=== PATIENT | female | born 1960 | race Caucasian/White ===

== ENCOUNTER 2016-09-01 21:16 | Emergency (ER) | payer OTHER ==
--- NOTE | 2016-09-01 21:36 | PDOC ---
History of Present Illness - General History Source: Patient Exam Limitations: No Limitations - History of Present Illness Initial Comments: 09/01/16 21:51 The patient is a 55 year old female with past medical history of fibrocystic breasts and left breast cyst removal who presents to the ED with complaints of bilateral breast pain and tenderness, left greater than right. She reports the pain is worse to touch and wraps all around her breast. Her last mammogram was 9 months ago and was normal. She reports already experiencing menopause. The patient reports having an appointment with her breast doctor on Saturday. The patient denies any fever, chills, nausea, vomiting, diarrhea, cough, shortness of breath, chest pain. PAST MEDICAL HISTORY: no significant history PAST SURGICAL HISTORY: no significant history FAMILY HISTORY: no pertinent history SOCIAL HISTORY: Pt lives with family and is employed. MEDICATIONS: reviewed ALLERGIES: As per nursing notes General: No fevers or chills, no weakness, no weight loss HEENT: No change in vision. No sore throat,. No ear pain CardioVascular: No chest pain or shortness of breath Respiratory:No cough, or wheezing. Gastrointestinal: no nausea, vomiting, diarrhea or constipation, No rectal bleeding Genitourinary: No dysuria, hematuria, or frequency Musculoskeletal: No joint or muscle pain or swellin Chest: Bilateral breast pain Neurologic: No headache, vertigo, dizziness or loss of consciousness Psychiatric: nor depression Skin: No rashes or easy bruising Endocrine: no increased thirst or abnormal weight change Allergic: no skin or latex allergy All other systems reviewed and normal GENERAL: The patient is awake, alert, and fully oriented, in no acute distress. HEAD: Normal with no signs of trauma. EYES: Pupils equal, round and reactive to light, extraocular movements intact, sclera anicteric, conjunctiva clear. EXTREMITIES: Normal range of motion, no edema. CHEST: Left breast has multiple palpable, irregular feeling nodules, most consistent with cysts. One palp nodule noted on right breast. All nodule are mobile and well defined NEUROLOGICAL: Normal speech, normal gait. PSYCH: Normal mood, normal affect. SKIN: Warm, Dry, normal turgor, no rashes or lesions noted. <Marissa Gomez - Last Filed: 09/01/16 21:51> - General History Source: Patient Exam Limitations: No Limitations - History of Present Illness Initial Comments: 09/01/16 21:55 A portion of this note was documented by scribe services under my direction. I have reviewed the details of the note, within reason, and agree with the documentation. The case summary and management plan written by me. Assessment and plan: This is a 55-year-old female comes in complaining of bilateral breast pain left greater than right. On exam patient does have some nodularity of her breast tissue however the nodules are freely mobile and somewhat tender. Talked with patient the importance of getting the nodules followed up as they most likely are secondary to cysts as she does have a history of fibrocystic breasts but they could also be secondary to something more concerning such as a malignancy. Impressed upon patient the importance of seeing her physician patient said that she does have an appointment for 3 days from now with a breast specialist which she said she will keep. Patient discharged home with some anti-inflammatories. <Ksenia Schulz I - Last Filed: 09/01/16 21:57> - General Chief Complaint: Pain, Acute Stated Complaint: BREAST PAIN L>R Time Seen by Provider: 09/01/16 21:23 Past History <Marissa Gomez - Last Filed: 09/01/16 21:51> - Past Medical History Anemia: No Asthma: No Cancer: No Diabetes: No Disorders: Yes (hematuria x years, followed by urologist Dr. Davis) HTN: Yes Hypercholesterolemia: No Suicide Attempt (Hx): No - Immunization History Immunization Up to Date: Yes - Psycho/Social/Smoking Cessation Hx Anxiety: No Suicidal Ideation: No Smoking Status: No Smoking History: Never smoked Have you smoked in the past 12 months: No Number of Cigarettes Smoked Daily: 0 Cigars Per Day: 0 Hx Alcohol Use: No Drug/Substance Use Hx: No Substance Use Type: None Hx Substance Use Treatment: No <Ksenia Schulz I - Last Filed: 09/01/16 21:57> - Past Medical History Allergies/Adverse Reactions: Allergies Allergy/AdvReac Type Severity Reaction Status Date / Time No Known Allergies Allergy Verified 09/01/16 21:20 Home Medications: Ambulatory Orders Ramipril 5 mg PO BID 02/18/12 Alendronate Sodium [Fosamax] 70 mg PO WEEKLY 04/10/16 Cholecalciferol (Vitamin D3) [Vitamin D3 -] 1,000 mg PO DAILY 04/10/16 Ciprofloxacin HCl [Cipro] 500 mg PO BID 09/01/16 Omeprazole 40 mg PO DAILY 09/01/16 Review of Systems - Review of Systems Able to Perform ROS?: Yes All Other Systems: Reviewed and Negative <Marissa Gomez - Last Filed: 09/01/16 21:51> *Physical Exam - Vital Signs Last Vital Signs Temp Pulse Resp BP Pulse Ox 98.4 F 55 L 15 153/97 99 09/01/16 21:18 09/01/16 21:18 09/01/16 21:18 09/01/16 21:18 09/01/16 21:18 <kevinMarissa gar - Last Filed: 09/01/16 21:51> *DC/Admit/Observation/Transfer - Attestations Scribe Attestion: 09/01/16 21:54 Documentation prepared by Marissa Gomez, acting as medical csr for Ksenia Schulz MD. <kevinrinMarissa - Last Filed: 09/01/16 21:51> - Discharge Dispostion Admit: No <Ksenia Schulz I - Last Filed: 09/01/16 21:57> Diagnosis at time of Disposition: Painful breasts - Discharge Dispostion Disposition: HOME Condition at time of disposition: Good - Referrals Referrals: Pepe Sargent MD [Primary Care Provider] - - Patient Instructions Additional Instructions: U can take Tylenol 2 extra strength tablets every 4 hours or ibuprofen 3 tablets every 6-8 hours as needed for pain take the ibuprofen with food don't take it on an empty stomach. Keep your appointment for Saturday with your breast Dr. Return to the emergency department immediately with ANY new, persistent or worsening symptoms. Continue any medications as previously prescribed by your physician. You should follow up with your primary doctor as soon as possible regarding today's emergency department visit. . Please make sure your doctor reviews the results of your emergency evaluation. Thank you for coming to the Emergency Department today for your care. It was a pleasure to see you today. Please note that your evaluation is INCOMPLETE until you follow-up with your doctor.
[2016-09-01] MEDS ORDERED: KETOROLAC TROMETHAMINE 60 MG/2 ML VIAL IM ONE (21:48)
[2016-09-01] MEDS ORDERED: KETOROLAC TROMETHAMINE 60 MG/2 ML VIAL ONE (21:48)
[2016-09-01 22:04] VITALS: BP 153/97; PULSE 55; TEMP 98.4; BMI 26.7
== END 2016-09-01 22:00 | disposition home or self-care (01) ==
LOC: FER 21:16
PROC: 3E0233Z Introduction of Anti-inflammatory into Muscle, Percutaneous Approach (ICD-10-PCS; principal; 2016-09-01)
DX: N64.4 Mastodynia (principal); N60.12 Diffuse cystic mastopathy of left breast; N60.11 Diffuse cystic mastopathy of right breast
CPT/HCPCS: 96372; 99281-25

== ENCOUNTER 2018-05-31 16:04 | Emergency (ER) | payer OTHER ==
[2018-05-31 16:24] VITALS: BP 145/78; PULSE 68; TEMP 98; BMI 29.2
--- NOTE | 2018-05-31 16:50 | PDOC ---
History of Present Illness - General Chief Complaint: Injury Stated Complaint: INJURY TO RIGHT FOOT Time Seen by Provider: 05/31/18 16:28 History Source: Patient Exam Limitations: No Limitations - History of Present Illness Initial Comments: 05/31/18 17:02 was vacumming yesterday and tripped causing her to collide with furniture edge/ incident occured last night Occurred: reports: yesterday Severity: reports: mild, moderate Pain Location: reports: lower extremity (right foot ) Modifying Factors: improves with: cold therapy Associated Symptoms (Fall): denies symptoms Past History - Travel Traveled outside of the country in the last 30 days: No Close contact w/someone who was outside of country & ill: No - Past Medical History Allergies/Adverse Reactions: Allergies Allergy/AdvReac Type Severity Reaction Status Date / Time No Known Allergies Allergy Verified 09/01/16 21:20 Home Medications: Ambulatory Orders Losartan Potassium 100 mg PO DAILY 01/08/18 Anemia: No Asthma: No Cancer: No COPD: No Diabetes: No Disorders: Yes (hematuria x years, followed by urologist Dr. Davis) HTN: Yes Hypercholesterolemia: No Liver Disease: Yes (CYST) - Immunization History Immunization Up to Date: Yes - Suicide/Smoking/Psychosocial Hx Smoking Status: No Smoking History: Never smoked Have you smoked in the past 12 months: No Number of Cigarettes Smoked Daily: 0 Cigars Per Day: 0 Information on smoking cessation initiated: No Hx Alcohol Use: No Drug/Substance Use Hx: No Substance Use Type: None Hx Substance Use Treatment: No Review of Systems - Review of Systems Able to Perform ROS?: Yes Is the patient limited Yakut proficient: Yes Constitutional: Yes: Symptoms Reported, See HPI HEENTM: No: Symptoms Reported Musculoskeletal: Yes: Symptoms Reported Integumentary: Yes: Symptoms Reported, See HPI, Bruising Neurological: Yes: See HPI. No: Symptoms reported All Other Systems: Reviewed and Negative *Physical Exam - Vital Signs Last Vital Signs Temp Pulse Resp BP Pulse Ox 98.0 F 68 16 145/78 99 05/31/18 16:05 05/31/18 16:05 05/31/18 16:05 05/31/18 16:05 05/31/18 16:05 - Physical Exam General Appearance: Yes: Nourished, Appropriately Dressed, Apparent Distress, Mild Distress HEENT: positive: MARK, Normal ENT Inspection, TMs Normal, Pharynx Normal Neck: positive: Supple Extremity: positive: Normal Capillary Refill, Normal Range of Motion (tender with ecchymosis to MTP/ prox phalynx of right 5th toe ), Swelling Integumentary: positive: Normal Color, Swelling, Bruising Neurologic: positive: set rider II-XII NML intact, Fully Oriented, Alert, Normal Mood/ Affect, Normal Response, Motor Strength 5/5 Progress Note - Progress Note Progress Note: Right fifth toe fracture, patient refuses x-ray as understands treatment will be unchanged. Facundo tape applied, cast shoe was placed, and will follow up as needed *DC/Admit/Observation/Transfer Diagnosis at time of Disposition: Toe fracture, right Qualifiers: Encounter type: initial encounter Toe: lesser toe Fracture type: closed Phalanx : distal Fracture alignment: nondisplaced Qualified Code(s): S92.534A - Nondisplaced fracture of distal phalanx of right lesser toe(s), initial encounter for closed fracture - Discharge Dispostion Disposition: HOME Condition at time of disposition: Stable Decision to Admit order: No - Referrals Referrals: Edmundo Fragoso MD [Staff Physician] - - Patient Instructions Printed Discharge Instructions: DI for Toe Fracture Additional Instructions: Rest, ice to area on and off for 15 minutes 4-6 times a day Avoid heavy lifting or exercise until pain and swelling is resolved or until further directed Keep area highly elevated to reduce swelling Use splints/Jonathan wrap as directed Followup with orthopedist in one to 2 days if not improving, if significantly improved may wait one week for followup with orthopedist May use Tylenol 23 25 no gram tablets every 4-6 hours as needed for pain - Post Discharge Activity Forms/Work/School Notes: Back to Work
== END 2018-05-31 17:53 | disposition home or self-care (01) ==
LOC: JERFT 16:04
DX: S92.534A Nondisplaced fracture of distal phalanx of right lesser toe(s), initial encounter for closed fracture (principal); W22.03XA Walked into furniture, initial encounter; Y93.E3 Activity, vacuuming; Y92.038 Other place in apartment as the place of occurrence of the external cause; Y99.8 Other external cause status
CPT/HCPCS: 99281-25

== ENCOUNTER 2018-11-23 09:36 | Emergency (ER) | payer OTHER ==
[2018-11-23 09:41] VITALS: BP 139/87; PULSE 80; TEMP 98.2; BMI 29.9
[2018-11-23] MEDS ORDERED: LIDOCAINE 5% TOPICAL PATCH TP ONE (10:10)
[2018-11-23] MEDS ORDERED: KETOROLAC TROMETHAMINE 15 MG/ML VIAL IM ONE (10:10)
[2018-11-23] MEDS ORDERED: LIDOCAINE 5% TOPICAL PATCH ONE (10:12)
[2018-11-23] MEDS ORDERED: KETOROLAC TROMETHAMINE 15 MG/ML VIAL ONE (10:12)
--- NOTE | 2018-11-23 10:13 | PDOC ---
History of Present Illness - General Chief Complaint: Pain Stated Complaint: CHEST PAIN Time Seen by Provider: 11/23/18 09:47 History Source: Patient Exam Limitations: No Limitations Past History - Travel Traveled outside of the country in the last 30 days: No Close contact w/someone who was outside of country & ill: No - Past Medical History Allergies/Adverse Reactions: Allergies Allergy/AdvReac Type Severity Reaction Status Date / Time No Known Allergies Allergy Verified 11/23/18 09:41 Home Medications: Ambulatory Orders Losartan Potassium 100 mg PO DAILY 01/08/18 Anemia: No Asthma: No Cancer: No COPD: No Diabetes: No Disorders: Yes (hematuria x years, followed by urologist Dr. Davis) HTN: Yes Hypercholesterolemia: No Liver Disease: Yes (CYST) - Immunization History Immunization Up to Date: Yes - Suicide/Smoking/Psychosocial Hx Smoking Status: No Smoking History: Never smoked Have you smoked in the past 12 months: No Number of Cigarettes Smoked Daily: 0 Cigars Per Day: 0 Hx Alcohol Use: No Drug/Substance Use Hx: No Substance Use Type: None Hx Substance Use Treatment: No Review of Systems - Review of Systems Able to Perform ROS?: Yes Comments:: 11/23/18 10:06 CONSTITUTIONAL: Absent: fever, chills, diaphoresis, generalized weakness, malaise, loss of appetite CARDIOVASCULAR: Absent: chest pain, loss of consciousness, palpitations, irregular heart rate, peripheral edema RESPIRATORY: Absent: cough, shortness of breath, dyspnea with exertion, orthopnea, wheezing, stridor, hemoptysis MUSCULOSKELETAL: Present: chest wall pain Absent: myalgia, arthralgia, joint swelling SKIN: Absent: rash, itching, pallor HEMATOLOGIC/IMMUNOLOGIC: Absent: easy bleeding, easy bruising, lymphadenopathy, frequent infections ENDOCRINE: Absent: unexplained weight gain, unexplained weight loss, heat intolerance, cold intolerance NEUROLOGIC: Absent: headache, focal weakness or paresthesias, dizziness, unsteady gait, seizure, mental status changes, bladder or bowel incontinence PSYCHIATRIC: Absent: anxiety, depression, suicidal or homicidal ideation, hallucinations. Is the patient limited Nepali proficient: No *Physical Exam - Vital Signs Last Vital Signs Temp Pulse Resp BP Pulse Ox 98.2 F 80 18 139/87 99 11/23/18 09:38 11/23/18 09:38 11/23/18 09:38 11/23/18 09:38 11/23/18 09:38 - Physical Exam Comments: 11/23/18 10:06 GENERAL: Well developed, well nourished. Awake and alert. No acute distress. HEENT: Normocephalic, atraumatic. PERRLA, EOMI. No conjunctival pallor. Sclera are non- icteric. Moist mucous membranes. Oropharynx is clear. NECK: Supple. Full ROM. No JVD. Carotid pulses 2+ and symmetric, without bruits. No thyromegaly. No lymphadenopathy. CARDIOVASCULAR: Regular rate and rhythm. No murmurs, rubs, or gallops. Distal pulses are 2+ and symmetric. PULMONARY: No evidence of respiratory distress. Lungs clear to auscultation bilaterally. No wheezing, rales or rhonchi. ABDOMINAL: Soft. Non-tender. Non-distended. No rebound or guarding. No organomegaly. Normoactive bowel sounds. MUSCULOSKELETAL TTP of the L chest wall along ribs 5-6 in the intercostal space. Normal range of motion at all joints. No bony deformities or tenderness. No CVA tenderness. EXTREMITIES: No cyanosis. No clubbing. No edema. No calf tenderness. SKIN: Warm and dry. Normal capillary refill. No rashes. No jaundice. NEUROLOGICAL: Alert, awake, appropriate. Cranial nerves 2-12 intact. No deficits to light touch and temperature in face, upper extremities and lower extremities. No motor deficits in the in face, upper extremities and lower extremities. Normoreflexic in the upper and lower extremities. Normal speech. Toes are down- going bilaterally. Gait is normal without ataxia. PSYCHIATRIC: Cooperative. Good eye contact. Appropriate mood and affect. Medical Decision Making - Medical Decision Making 11/23/18 09:04 *DC/Admit/Observation/Transfer Diagnosis at time of Disposition: Left-sided chest wall pain - Discharge Dispostion Disposition: HOME Condition at time of disposition: Stable Decision to Admit order: No - Referrals - Patient Instructions Printed Discharge Instructions: DI for Atypical Chest Pain Additional Instructions: You most likely have chest wall pain from pulling a patient Take Tylenol 1000mg every 6 hours for pain Use the incentive spirometer once an hour until your pain is relieved. Please follow-up with her primary care doctor this week. Return to the ER for worsening pain, lightheadedness, dizziness, or if you have any changes in your symptoms. - Post Discharge Activity Forms/Work/School Notes: Back to Work
[2018-11-23] MEDS ORDERED: LIDOCAINE PATCH REMOVAL MC SCH (22:00)
== END 2018-11-23 10:24 | disposition home or self-care (01) ==
LOC: JERFT 09:36
DX: R07.89 Other chest pain (principal)
CPT/HCPCS: 99281-25

== ENCOUNTER 2019-08-15 12:52 | Emergency (ER) | payer OTHER ==
[2019-08-15 13:08] VITALS: BP 120/88; PULSE 96; TEMP 99.7; BMI 30.1
[2019-08-15] MEDS ORDERED: ACETAMINOPHEN 500 MG TABLET (FP) PO ONE (13:21)
[2019-08-15] MEDS ORDERED: ACETAMINOPHEN 500 MG TABLET (FP) ONE (13:22)
--- NOTE | 2019-08-15 13:27 | PDOC ---
History of Present Illness - General Chief Complaint: Cold Symptoms Stated Complaint: COLD SYMPTOMS Time Seen by Provider: 08/15/19 13:09 History Source: Patient Exam Limitations: No Limitations - History of Present Illness Initial Comments: 08/15/19 13:21 Patient is a 58-year-old female who presents to the ED with complaint of body aches, dry cough and general unwell feeling since last night. She states she worked 12 hours yesterday and 1 of her colleagues had the flu. The patient does admit to getting a flu shot this year. She has a history of hypertension and multiple renal cysts. She has no allergies to medications. The patient took NyQuil last night which did help her. Past History - Past Medical History Allergies/Adverse Reactions: Allergies Allergy/AdvReac Type Severity Reaction Status Date / Time No Known Allergies Allergy Verified 08/15/19 13:03 Home Medications: Ambulatory Orders Lisinopril 5 mg PO BID 08/15/19 Oseltamivir Phosphate [Tamiflu] 75 mg PO BID #10 capsule 08/15/19 Anemia: No Asthma: No Cancer: No COPD: No Diabetes: No Disorders: Yes (hematuria x years, followed by urologist Dr. Davis) HTN: Yes Hypercholesterolemia: No Liver Disease: Yes (CYST) Other medical history: multiple renal cysts - Immunization History Immunization Up to Date: Yes - Psycho Social/Smoking Cessation Hx Smoking Status: No Smoking History: Never smoked Have you smoked in the past 12 months: No Number of Cigarettes Smoked Daily: 0 Cigars Per Day: 0 Hx Alcohol Use: No Drug/Substance Use Hx: No Substance Use Type: None Hx Substance Use Treatment: No Review of Systems - Review of Systems Comments:: 08/15/19 13:22 - Review of Systems Able to Perform ROS?: Yes Constitutional: No: Loss of Appetite, Night Sweats, Weakness, positive subjective Fever, Chills HEENTM: No: Eye Pain, Vision changes, Ear Pain, Throat Pain, Throat Swelling, Mouth Pain, Difficulty Swallowing Respiratory: No: Shortness of Breath, Wheezing, Sputum Production, Positive dry Cough Cardiac (ROS): No: Chest Pain, Chest Tightness, Palpitations, Irregular Heart Beat, Edema ABD/GI: No: Nausea, Vomiting, Abdominal Pain, Diarrhea : No Dysuria, No Hematuria, No Frequency, No Urgency Musculoskeletal: No: Muscle Pain, Back Pain, Joint Pain, Muscle Weakness, Neck Pain Integumentary: No: Lesions, Rash Neurological: No: Headache, Numbness, Tingling, Weakness, Speech Difficulties *Physical Exam - Vital Signs Last Vital Signs Temp Pulse Resp BP Pulse Ox 99.7 F H 96 H 18 120/88 99 08/15/19 13:05 08/15/19 13:05 08/15/19 13:05 08/15/19 13:05 08/15/19 13:05 - Physical Exam 08/15/19 13:23 - Physical Exam General Appearance: Nourished, Appropriately Dressed, No Distress HEENT: EOMI, Normal Voice, No Pharyngeal Erythema, No Muffled/Hoarse voice, No Tonsillar Exudate, No Tonsillar Erythema, No Nasal Congestion, No Rhinorrhea, Hearing Grossly Normal, TMs Normal, No TM Bulging, No TM Dullness, No TM Erythema Neck: Supple, No Lymphadenopathy (R), No Lymphadenopathy (L), No Rigidity, No Decreased range of motion Respiratory/Chest: Lungs Clear, Normal Breath Sounds. No Respiratory Distress, No Accessory Muscle Use Cardiovascular: Regular Rhythm, Regular Rate, S1, S2 Gastrointestinal/Abdominal: Normal Bowel Sounds, Soft. Non-tender, No Guarding , No Rebound, No Rigidity Musculoskeletal: Normal Inspection. No Decreased Range of Motion Extremity: Normal Capillary Refill, Normal Inspection Integumentary: Normal Color, Dry. 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 Plan: -Tylenol p.o. given in the ED -We will prescribe Tamiflu secondary to a close contact being diagnosed with influenza and patient now having similar symptoms -She should follow-up with her primary doctor within 1 to 2 days for repeat evaluation. Discharge - Discharge Information Problems reviewed: Yes Clinical Impression/Diagnosis: Flu-like symptoms Condition: Stable Disposition: HOME - Additional Discharge Information Prescriptions: Oseltamivir Phosphate [Tamiflu] 75 mg PO BID #10 capsule - Follow up/Referral Referrals: Pepe Sargent MD [Primary Care Provider] - - Patient Discharge Instructions Patient Printed Discharge Instructions: DI for Viral Syndrome Additional Instructions: Get plenty of rest and drink plenty of fluids. Take the Tamiflu as prescribed and complete the entire course. If the Tamiflu gives you vomiting or diarrhea you can stop taking it. Take Tylenol for fevers and body aches. Follow-up with your primary doctor within 1 to 2 days for repeat evaluation. - Post Discharge Activity Work/Back to School Note: Back to Work
== END 2019-08-15 13:33 | disposition home or self-care (01) ==
LOC: JERFT 12:52
DX: J11.1 Influenza due to unidentified influenza virus with other respiratory manifestations (principal); I10 Essential (primary) hypertension
CPT/HCPCS: 99281-25

== ENCOUNTER 2020-09-29 11:49 | Emergency (ER) | payer OTHER ==
[2020-09-29 13:59] LABS: BASO % 0.4 % (0-2.0); EOS % 0.5 % (0-4.5); HEMATOCRIT 37.4 % (32.4-45.2); HEMOGLOBIN 12.6 GM/dL (10.7-15.3); LYMPH % 8.4 % (8-40); MCH 30.4 pg (25.7-33.7); MCHC 33.8 g/dl (32.0-36.0); MEAN CELL VOLUME 89.8 fl (80-96); MEAN PLT VOLUME 8.7 fl (7.5-11.1); MONO % 7.7 % (3.8-10.2); PLATELET COUNT 331 K/MM3 (134-434); RBC 4.16 M/mm3 (3.60-5.2); RDW 14.2 % (11.6-15.6)
[2020-09-29 14:09] LABS: EPI CELLS 6 /uL (0-25.1); HYALINE CASTS 0 /uL (0-3.1); PH,URINE 5.5 (5.0-8.0); URINE APPEARANCE CLEAR; URINE BACTERIA 387 /uL (0-1359); URINE BILIRUBIN NEGATIVE (NEGATIVE); URINE COLOR YELLOW; URINE GLUCOSE (UA) NEGATIVE (NEGATIVE); URINE KETONE NEGATIVE (NEGATIVE); URINE LEUK ESTERASE NEGATIVE (NEGATIVE); URINE NITRITE NEGATIVE (NEGATIVE); URINE PROTEIN NEGATIVE (NEGATIVE); URINE RBC 69 /uL (0-23.9); URINE UROBILINOGEN 0.2 mg/dL (0.2-1.0); URINE WBC 8 /uL (0-25.8)
[2020-09-29 14:18] LABS: CHLORIDE 107 mmol/L (98-107); POTASSIUM 3.6 mmol/L (3.5-5.1); SODIUM 142 mmol/L (136-145)
[2020-09-29 14:20] LABS: CALCIUM 9.3 mg/dL (8.5-10.1)
[2020-09-29 14:21] LABS: ALBUMIN 3.2 g/dl (3.4-5.0); ANION GAP 7 MMOL/L (8-16); BLOOD UREA NITROGEN 21.4 mg/dL (7-18); CO2 28 mmol/L (21-32); GLUCOSE,RANDOM 98 mg/dL (74-106); LIPASE 141 U/L (73-393)
[2020-09-29 14:23] LABS: SGPT/ALT 23 U/L (13-61)
[2020-09-29 14:24] LABS: CREATININE 0.7 mg/dL (0.55-1.3); SGOT/AST 16 U/L (15-37)
[2020-09-29 14:25] LABS: BILIRUBIN,TOTAL 0.3 mg/dL (0.2-1); TOT PROT 6.9 g/dl (6.4-8.2)
[2020-09-29 14:26] LABS: ALK PHOS 122 U/L (45-117)
[2020-09-29 17:16] VITALS: BP 136/83; PULSE 62; TEMP 98.7
== END 2020-09-29 17:20 | disposition home or self-care (01) ==
LOC: JER 11:49
DX: K80.20 Calculus of gallbladder without cholecystitis without obstruction (principal); K80.50 Calculus of bile duct without cholangitis or cholecystitis without obstruction
CPT/HCPCS: 36415; 71046-TC-FY; 76705-TC; 80053; 81003; 83605; 83690; 84484; 85025; 87086; 93005; 93010; 99285-25

== ENCOUNTER 2020-10-21 04:55 | Day surgery (SDC) | payer OTHER ==
[2020-10-21 07:52] LABS: INR 1.09 (0.83-1.09); PROTHROMBIN TIME (PATIENT) 13.2 SEC (9.7-13.0)
[2020-10-21] MEDS ORDERED: BUPIVACAINE HCL 100 ML ONE (08:22)
[2020-10-21] MEDS ORDERED: LIDOCAINE HCL/PF 2% SDV 5ML VIAL ONE (09:11)
[2020-10-21] MEDS ORDERED: PROPOFOL 20 ML ONE (09:11)
[2020-10-21] MEDS ORDERED: ROCURONIUM BROMIDE 50 MG/5 ML SYRINGE ONE (09:11)
[2020-10-21] MEDS ORDERED: MIDAZOLAM HCL 2 MG/2 ML SINGLE DOSE VIAL ONE (09:11)
[2020-10-21] MEDS ORDERED: fentaNYL CITRATE 250 MCG/5 ML VIAL ONE (09:11)
[2020-10-21] MEDS ORDERED: ceFAZolin 2 GRAM PREMIX BAG IVPB ONE (09:32)
[2020-10-21] MEDS ORDERED: ceFAZolin SODIUM 1 GM VIAL ONE (09:32)
[2020-10-21] MEDS ORDERED: BUPIVACAINE HCL/PF 0.5% (5MG/ML) 10 ML VIAL IJ ONE (10:39)
[2020-10-21] MEDS ORDERED: BENZOIN/ALOE VERA/STORAX/TOLU 58 ML BOTTLE ONE (10:40)
[2020-10-21] MEDS ORDERED: DEXAMETHASONE SOD PHOSPHATE 4 MG/1 ML VIAL ONE (10:41)
[2020-10-21] MEDS ORDERED: KETOROLAC TROMETHAMINE 30 MG/1 ML VIAL ONE (10:41)
[2020-10-21] MEDS ORDERED: GLYCOPYRROLATE 0.2 MG/1 ML VIAL ONE ×2 (10:42)
[2020-10-21] MEDS ORDERED: NEOSTIGMINE METHYLSULFATE 0.5 MG/ML - 10 ML MDV ONE (10:42)
[2020-10-21] MEDS ORDERED: BENZOIN/ALOE VERA/STORAX/TOLU 58 ML BOTTLE TP ONE (10:42)
[2020-10-21] MEDS ORDERED: ONDANSETRON 4 MG/2 ML VIAL IVPUSH PRN (11:04)
[2020-10-21] MEDS ORDERED: PROMETHAZINE HCL 25 MG/1 ML VIAL IVPB PRN (11:04)
[2020-10-21] MEDS ORDERED: oxyCODONE HCL 5 MG TABLET PO PRN ×2 (11:04→11:11)
[2020-10-21] MEDS ORDERED: ACETAMINOPHEN 1000 MG/100 ML VIAL (NON FORMULARY) IVPB PRN (11:12)
[2020-10-21] MEDS ORDERED: ACETAMINOPHEN INJECTION 100 ML IVPB ONE (12:35)
[2020-10-21] MEDS ORDERED: HYDROmorphone HCl 2 MG/ML VIAL ONE (13:22)
[2020-10-21] MEDS ORDERED: ONDANSETRON 4 MG/2 ML VIAL ONE (13:28)
[2020-10-21] MEDS ORDERED: HYDROmorphone HCl 2 MG/ML VIAL IVPUSH ONE (13:44)
[2020-10-21] MEDS ORDERED: ACETAMINOPHEN 500 MG TABLET (FP) PO PRN (14:19)
[2020-10-21] MEDS ORDERED: IBUPROFEN 600 MG TABLET (FP) PO PRN (14:20)
[2020-10-21] MEDS ORDERED: SODIUM CHLORIDE 1,000 ML IV SCH (14:30)
[2020-10-21] MEDS: LISINOPRIL 10 MG TABLET PO SCH (22:33)
[2020-10-22 07:24] VITALS: BP 108/57; PULSE 72; TEMP 97.7
[2020-10-22 07:49] LABS: BASO % 0.2 % (0-2.0); EOS % 0.4 % (0-4.5); HEMATOCRIT 33.4 % (32.4-45.2); HEMOGLOBIN 11.3 GM/dL (10.7-15.3); LYMPH % 16.2 % (8-40); MCH 30.9 pg (25.7-33.7); MEAN CELL VOLUME 91.1 fl (80-96); MEAN PLT VOLUME 9.1 fl (7.5-11.1); MONO % 7.9 % (3.8-10.2); NEUT % 75.3 % (42.8-82.8); PLATELET COUNT 277 K/MM3 (134-434); RBC 3.66 M/mm3 (3.60-5.2); RDW 14.2 % (11.6-15.6); WHITE BLOOD COUNT 10.3 K/mm3 (4.0-10.0)
[2020-10-22 08:08] LABS: CALCIUM 8.2 mg/dL (8.5-10.1)
[2020-10-22 08:09] LABS: ALBUMIN 2.7 g/dl (3.4-5.0); BLOOD UREA NITROGEN 14.7 mg/dL (7-18)
[2020-10-22 08:12] LABS: CREATININE 0.8 mg/dL (0.55-1.3)
[2020-10-22 08:14] LABS: BILIRUBIN,TOTAL 0.6 mg/dL (0.2-1); TOT PROT 5.6 g/dl (6.4-8.2)
[2020-10-22] MEDS: LISINOPRIL 10 MG TABLET PO SCH (09:10)
== END 2020-10-22 11:55 | disposition home or self-care (01) ==
LOC: JASUSAT 04:55 → JASU-SURG 04:55 → J8W 14:58 → JASUSAT 10-22 11:55
PROVIDERS: ATTEND Surgery
PROC: 0FT44ZZ Resection of Gallbladder, Percutaneous Endoscopic Approach (ICD-10-PCS; principal; 2020-10-21 09:00)
DX: K80.10 Calculus of gallbladder with chronic cholecystitis without obstruction (principal)
CPT/HCPCS: 36415; 80053; 85025; 85610; 88304-TC; 94760; J0131

== ENCOUNTER 2021-02-02 17:35 | Emergency (ER) | payer OTHER ==
[2021-02-02 17:43] VITALS: BMI 29.2
[2021-02-02] MEDS ORDERED: KETOROLAC TROMETHAMINE 15 MG/ML VIAL IVPUSH ONE (19:39)
[2021-02-02] MEDS ORDERED: KETOROLAC TROMETHAMINE 15 MG/ML VIAL ONE (19:58)
[2021-02-02 20:33] LABS: BASO % 0.4 % (0-2.0); EOS % 2.2 % (0-4.5); HEMATOCRIT 40.5 % (32.4-45.2); HEMOGLOBIN 13.6 GM/dL (10.7-15.3); MCH 30.5 pg (25.7-33.7); MCHC 33.6 g/dl (32.0-36.0); MEAN CELL VOLUME 90.7 fl (80-96); MEAN PLT VOLUME 8.5 fl (7.5-11.1); MONO % 9.3 % (3.8-10.2); NEUT % 67.1 % (42.8-82.8); PLATELET COUNT 361 10^3/uL (134-434); RBC 4.46 M/mm3 (3.60-5.2); RDW 14.3 % (11.6-15.6); WHITE BLOOD COUNT 9.2 K/mm3 (4.0-10.0)
[2021-02-02 20:47] LABS: ALBUMIN 3.6 g/dl (3.4-5.0); LIPASE 129 U/L (73-393)
[2021-02-02 20:48] LABS: BLOOD UREA NITROGEN 17.1 mg/dL (7-18); MAGNESIUM 2.4 mg/dL (1.8-2.4)
[2021-02-02 20:50] LABS: BILIRUBIN,DIRECT 0.1 mg/dL (0.0-0.2); SGOT/AST 16 U/L (15-37); SGPT/ALT 26 U/L (13-61)
[2021-02-02 20:51] LABS: BILIRUBIN,TOTAL 0.3 mg/dL (0.2-1); CREATININE 0.8 mg/dL (0.55-1.3)
[2021-02-02 20:52] LABS: ALK PHOS 140 U/L (45-117); PHOSPHOROUS 3.7 mg/dL (2.5-4.9); TOT PROT 7.6 g/dl (6.4-8.2)
[2021-02-02 20:53] LABS: BILIRUBIN,TOTAL 0.3 mg/dL (0.2-1); TOT PROT 7.7 g/dl (6.4-8.2)
[2021-02-03 01:35] VITALS: BP 134/81; PULSE 60; TEMP 98.3
== END 2021-02-03 01:43 | disposition home or self-care (01) ==
LOC: JER 17:35
PROC: 3E0233Z Introduction of Anti-inflammatory into Muscle, Percutaneous Approach (ICD-10-PCS; principal; 2021-02-02)
DX: M94.0 Chondrocostal junction syndrome [Tietze] (principal)
CPT/HCPCS: 36415; 71046-TC-FY; 71101-TC-LT-FY; 71275-TC; 80053; 80076; 82550; 83690; 83735; 84100; 84484; 85025; 85379; 93005; 93010; 99284-25

== ENCOUNTER 2022-02-10 06:59 | Emergency (ER) | payer OTHER ==
[2022-02-10 07:09] VITALS: BP 127/77; PULSE 74; RESP 16; TEMP 98.4; BMI 30.9
== END 2022-02-10 09:45 | disposition home or self-care (01) ==
LOC: JERFT 06:59
DX: M25.562 Pain in left knee (principal)
CPT/HCPCS: 73562-TC-LT-FY; 93971-TC; 99284-25

== ENCOUNTER 2022-03-20 05:32 | Day surgery (SDC) | payer OTHER ==
[2022-03-19 07:57] VITALS: BMI 30.9
[2022-03-20 10:03] VITALS: TEMP 96.8
[2022-03-20 11:16] VITALS: BP 134/74; PULSE 55; RESP 30
== END 2022-03-20 11:15 | disposition home or self-care (01) ==
LOC: JASU-ENDO 05:32
PROVIDERS: ATTEND Internal Medicine Gastroenterology
PROC: 0DBL8ZX Excision of Transverse Colon, Via Natural or Artificial Opening Endoscopic, Diagnostic (ICD-10-PCS; 2022-03-20)
PROC: 0DBP8ZX Excision of Rectum, Via Natural or Artificial Opening Endoscopic, Diagnostic (ICD-10-PCS; 2022-03-20)
PROC: 0DBH8ZX Excision of Cecum, Via Natural or Artificial Opening Endoscopic, Diagnostic (ICD-10-PCS; principal; 2022-03-20 10:00)
DX: Z12.11 Encounter for screening for malignant neoplasm of colon (principal); K63.5 Polyp of colon; K64.8 Other hemorrhoids; I10 Essential (primary) hypertension
CPT/HCPCS: 88305-TC

== ENCOUNTER 2023-07-28 17:20 | Emergency (ER) | payer OTHER ==
[2023-07-28 17:27] VITALS: RESP 18; BMI 29.2
[2023-07-28] MEDS ORDERED: MAG HYDROX/AL HYDROX/SIMETH 30 ML UNIT-DOSE CUP PO ONE (18:23)
[2023-07-28] MEDS ORDERED: FAMOTIDINE 20 MG TABLET PO ONE (18:24)
[2023-07-28] MEDS ORDERED: FAMOTIDINE 20 MG TABLET ONE (18:42)
[2023-07-28] MEDS ORDERED: MAG HYDROX/AL HYDROX/SIMETH 30 ML UNIT-DOSE CUP ONE (18:43)
[2023-07-28 18:47] LABS: BASO % 0.5 % (0-2.0); EOS % 1.3 % (0-4.5); HEMATOCRIT 40.6 % (32.4-45.2); HEMOGLOBIN 13.7 GM/dL (10.7-15.3); LYMPH % 23.5 % (8-40); MCH 30.1 pg (25.7-33.7); MCHC 33.9 g/dl (32.0-36.0); MEAN CELL VOLUME 88.9 fl (80-96); MONO % 10.7 % (3.8-10.2); PLATELET COUNT 431 10^3/uL (134-434); RBC 4.56 M/mm3 (3.60-5.2); RDW 13.7 % (11.6-15.6); WHITE BLOOD COUNT 8.8 K/mm3 (4.0-10.0)
[2023-07-28 19:17] LABS: CALCIUM 9.4 mg/dL (8.5-10.1)
[2023-07-28 19:18] LABS: ALBUMIN 3.4 g/dl (3.4-5.0)
[2023-07-28 19:21] LABS: CREATININE 0.8 mg/dL (0.55-1.3)
[2023-07-28 19:22] LABS: TOT PROT 7.3 g/dl (6.4-8.2)
[2023-07-28 19:23] LABS: BILIRUBIN,TOTAL 0.6 mg/dL (0.2-1)
[2023-07-28 19:24] LABS: BLOOD UREA NITROGEN 10.2 mg/dL (7-18)
[2023-07-28] MEDS ORDERED: PANTOPRAZOLE 40 MG TABLET PO ONE ×2 (19:29→19:59)
[2023-07-28 20:37] VITALS: BP 124/70; PULSE 74; TEMP 98.1
== END 2023-07-28 20:37 | disposition home or self-care (01) ==
LOC: JER 17:20
DX: R10.13 Epigastric pain (principal); R11.0 Nausea; R10.12 Left upper quadrant pain
CPT/HCPCS: 36415; 80053; 83690; 84484; 85025; 93005; 93010; 99284-25

== ENCOUNTER 2023-11-26 04:24 | Day surgery (SDC) | payer OTHER ==
[2023-11-25 11:52] VITALS: BMI 29.7
[2023-11-26 11:51] VITALS: TEMP 97.7
[2023-11-26 13:40] VITALS: BP 136/79; PULSE 69; RESP 17
== END 2023-11-26 13:03 | disposition home or self-care (01) ==
LOC: JASU-ENDO 04:24
PROVIDERS: ATTEND Internal Medicine Gastroenterology
PROC: 0DB68ZX Excision of Stomach, Via Natural or Artificial Opening Endoscopic, Diagnostic (ICD-10-PCS; 2023-11-26)
PROC: 0DB98ZX Excision of Duodenum, Via Natural or Artificial Opening Endoscopic, Diagnostic (ICD-10-PCS; principal; 2023-11-26 10:15)
DX: K29.80 Duodenitis without bleeding (principal); K44.9 Diaphragmatic hernia without obstruction or gangrene; K31.89 Other diseases of stomach and duodenum
CPT/HCPCS: 88305-TC; 88341-TC; 88342-TC